=== PATIENT | male | born 1950 | race Caucasian/White ===

== ENCOUNTER 2016-09-14 08:09 | Day surgery (SDC) | payer BC, OTHER ==
[~2016-09-14] VITALS: Ht 172.7 cm; Wt 117.9 kg
[~2016-09-14 08:09] MED LIST: ADULT LOW DOSE81 M1 PO; AVALIDE 300-121 EACH PO; FISH OIL 1,0001 EAC7 PO; FISH OIL300 MG PO; HUMALOG100 UNIT/2 SQ; HYDROCODON-ACE1 EAC7 PO; I-CAPS AREDS S1 EACH PO; LANTUS 3 M100 UNITS1 SC; LITE COAT ASPI325 M1 PO; LYRICA150 MG PO; MULTIVITAMINS1 EA11 PO; NIASPAN,SLO-N1000 MG; NOVOLOG100 UNIT/1 SQ; SYNJARDY 12.5-1 EACH PO; TRAMADOL HCL E200 M1 PO; TRAMADOL HCL50 MG PO; VALSARTAN-HCTZ1 EAC2 PO; VITAMIN D32000 UNI1 PO
[2016-09-14 09:05] LABS: POINT-OF-CARE METER ID UU13113694
[2016-09-14 09:16] VITALS: BP 166/89
[2016-09-14 10:04] LABS: METH RESISTANT S AUREUS PCR NEGATIVE (NEGATIVE)
[2016-09-14 10:07] LABS: PROBE CHECK PASS; SPECIMEN PROCESSING CONTROL PASS
[2016-09-14 12:35] LABS: POINT-OF-CARE METER ID UU13113675; POINT-OF-CARE USER ID 515036437
[2016-09-14 13:29] VITALS: BP 163/84
[2016-09-14 14:35] VITALS: BP 159/89
[2016-09-14 15:15] VITALS: BP 155/88
== END 2016-09-14 15:20 | disposition home or self-care (01) ==
LOC: SDC 08:09
PROVIDERS: Neurological Surgery
DX: M50.122 Cervical disc disorder at C5-C6 level with radiculopathy (principal); E11.9 Type 2 diabetes mellitus without complications; E78.5 Hyperlipidemia, unspecified; Z83.3 Family history of diabetes mellitus; Z79.4 Long term (current) use of insulin; Z79.82 Long term (current) use of aspirin; F17.210 Nicotine dependence, cigarettes, uncomplicated; Z82.49 Family history of ischemic heart disease and other diseases of the circulatory system; Z81.8 Family history of other mental and behavioral disorders; G47.33 Obstructive sleep apnea (adult) (pediatric)
CPT/HCPCS: 72020; 76000; 82948; 87641; C1713; J0330; J2405; J2710; J3010

== ENCOUNTER 2016-11-14 13:36 | Emergency (ER) | payer BC, OTHER ==
[~2016-11-14] VITALS: Ht 172.7 cm; Wt 120.5 kg
[2016-11-14 15:00] LABS: HEMATOCRIT 46.7 % (38.0-50.0); MCH 28.6 PG (29.0-34.0); MCHC 32.5 G/DL (30.0-36.0); MCV 87.8 FL (86-99); MEAN PLAT.VOLUME 9.4 uM^3 (9.0-12.4); PLATELET COUNT 172 K/uL (156-360); RBC DIS.WIDTH-CV 13.5 % (11.8-14.6); RBC DIS.WIDTH-SD 43.5 % (39-53); RED BLOOD COUNT 5.32 M/uL (4.00-5.50); WHITE BLOOD COUNT 7.7 K/uL (4.1-10.2)
[2016-11-14 15:12] LABS: CHLORIDE 102 mEq/L (99-109); POTASSIUM 3.9 mEq/L (3.7-5.4); SODIUM 141 mEq/L (136-147)
[2016-11-14 15:14] LABS: GLUCOSE 214 mg/dL (70-99)
[2016-11-14 15:15] LABS: ANION GAP 9 MEQ/L (2-14)
[2016-11-14 15:17] LABS: GFR ESTIMATE (CALCULATED) > 59 mL/min/
[2016-11-14 15:18] LABS: UREA NITROGEN (BUN) 13 mg/dL (9-23)
[2016-11-14 16:36] LABS: ADD MIUA? NO; BILIRUBIN NEGATIVE; BLOOD NEGATIVE; COLOR YELLOW ((YELLOW)); GLUCOSE (STRIP) >=500; KETONES NEGATIVE; LEUKOCYTES NEGATIVE; NITRITE NEGATIVE; PROTEIN (STRIP) NEGATIVE; SPECIFIC GRAVITY 1.029 (1.000-1.030); UCUL ADDED? NO; UROBILINOGEN 0.2 MG/DL (0.2-1.0)
[2016-11-14] MEDS ORDERED: LEVAQUIN750 MG PO (16:48)
[2016-11-14 17:20] VITALS: BP 160/93
== END 2016-11-14 17:22 | disposition home or self-care (01) ==
LOC: EME 13:36
PROVIDERS: Emergency Medicine
DX: N43.3 Hydrocele, unspecified (principal); N45.2 Orchitis; M25.552 Pain in left hip; I10 Essential (primary) hypertension; E11.9 Type 2 diabetes mellitus without complications; Z79.4 Long term (current) use of insulin; Z79.82 Long term (current) use of aspirin; Z87.442 Personal history of urinary calculi; Z87.891 Personal history of nicotine dependence
CPT/HCPCS: 76870; 80048; 81003; 85027; 93975; 99281; 99285